=== PATIENT | male | born 1965 | race Caucasian/White ===

== ENCOUNTER 2017-09-08 03:59 | Emergency (ER) | payer OTHER ==
--- NOTE | 2017-09-08 04:47 | ED Physician Documentation ---
PD HPI HEENT - Stated complaint Stated Complaint: SINUS PAIN - Chief complaint Chief Complaint: Heent - History obtained from History obtained from: Patient - History of Present Illness Timing - onset: How many weeks ago (1-2) Timing - details: Gradual onset, Waxing and waning Location: Sinuses Associated symptoms: Congestion, Rhinorrhea Recently seen: Clinic, Emergency Dept - Additional information Additional information: patient says in May 2017, he developed coughing and testing eventually led to diagnosis of left lower lobe pneumonia, was admitted for few days (different facility) for iv antibiotics and breathing treatments. he subsequently went through alcohol rehab and had recurrent problems with cough and dyspnea requiring courses of antibiotics and steroids. he has gradually developed sinus congestion bilaterally and has had testing for this including CT sinuses (he indicates it revealed sinusitis in bilateral maxillary, ethmoid, and frontal sinuses). he is scheduled to see ENT (initial visit) next week, but presents due to the increasing difficulty breathing through his nose and sinus congestion and pressure. Review of Systems Constitutional: reports: Reviewed and negative Ears: denies: Ear pain Nose: reports: Rhinorrhea / runny nose, Congestion, Sinus pressure / pain Throat: denies: Sore throat Respiratory: reports: Reviewed and negative PD PAST MEDICAL HISTORY - Past Medical History Past Medical History: Yes Respiratory: Pneumonia HEENT: Other (sinusitis) Other Past Medical History: Former alcoholism. - Past Surgical History Past Surgical History: No HEENT: Tonsil/Adenoidectomy - Present Medications Home Medications: Ambulatory Orders Medication Instructions Recorded Confirmed Amox/Clav 875/125 [Augmentin] 1 each PO Q12H #13 tablet 09/08/17 Fluticasone 44 Mcg [Flovent] 220 mcg INH BID 09/08/17 Fluticasone [Flonase] 1 sprays [facility] DAILY #1 bottle 09/08/17 Naltrexone HCl 50 mg PO DAILY 09/08/17 Oxymetazoline HCl [Afrin] 2 spray NS Q8HR 09/08/17 Pantoprazole [Protonix] 40 mg PO DAILY 09/08/17 Phenylephrine HCl [Sinus PE 10 mg PO DAILY 09/08/17 09/08/17 Decongestant] predniSONE [Prednisone] 10 mg PO [id number] #1 tab.ds.pk 09/08/17 - Allergies Allergies/Adverse Reactions: Allergies Allergy/AdvReac Type Severity Reaction Status Date / Time No Known Drug Allergies Allergy Verified 09/08/17 04:11 - Social History Does the pt smoke?: No Smoking Status: Never smoker Does the pt drink ETOH?: No Does the pt have substance abuse?: No - Immunizations Immunizations are current?: Yes PD ED PE NORMAL - Vitals Vital signs reviewed: Yes - General General: Alert and oriented X 3, No acute distress, Well developed/nourished - HEENT HEENT: Moist mucous membranes, Pharynx benign - Cardiac Cardiac: RRR, No murmur - Respiratory Respiratory: No respiratory distress, Clear bilaterally Results - Vitals Vitals: Vital Signs - 24 hr 09/08/17 09/08/17 04:46 05:41 Temperature 36.4 C L Heart Rate 86 Respiratory 16 Rate Blood Pressure 128/89 H O2 Saturation 98 Oxygen O2 Source Room air PD MEDICAL DECISION MAKING - ED course Complexity details: reviewed old records, considered differential, d/w patient Departure - Departure Disposition: 01 Home, Self Care Clinical Impression: Sinusitis Condition: Good Instructions: ED Sinusitis Abx Tx Follow-Up: [facility] [Provider Group] Prescriptions: Amox/Clav 875/125 [Augmentin] 1 each PO Q12H #13 tablet Fluticasone [Flonase] 1 sprays [facility] DAILY #1 bottle predniSONE [Prednisone] 10 mg PO [id number] #1 tab.ds.pk Comments: Follow up next week with ENT as scheduled Discharge Date/Time: 09/08/17 05:41
[2017-09-08] MEDS ORDERED: predniSONE 20 MG TABLET PO STA (05:32)
[2017-09-08] MEDS ORDERED: AMOX/CLAV 875 MG/125 MG TABLET PO STA (05:32)
[2017-09-08 05:42] VITALS: BP 128/89
== END 2017-09-08 05:41 | disposition home or self-care (01) ==
LOC: ED 03:59
DX: J32.9 Chronic sinusitis, unspecified (principal)
CPT/HCPCS: 99283; A9270; J7512